=== PATIENT | female | born 2000 | race Caucasian/White ===

== ENCOUNTER 2024-09-28 12:50 | Outpatient (CLI) | payer BC, SELFPAY | END 2024-09-28 12:51 | disposition home or self-care (01) | PROVIDERS: PCP Family Medicine; Visit Provider Family Medicine | DX: R63.4 Abnormal weight loss (principal); R19.8 Other specified symptoms and signs involving the digestive system and abdomen; Z83.49 Family history of other endocrine, nutritional and metabolic diseases; Z82.61 Family history of arthritis | CPT/HCPCS: 80053; 84439; 84443; 86038; 86140; 86200; 86376; 86381; 86431 ==

== ENCOUNTER 2024-10-05 11:53 | Emergency (ER) | payer BC, SELFPAY ==
--- OUTSIDE RECORDS SUMMARY | 2024-09-26 08:30 | XMS_ITS | Encounter Summary ---
Author Organization [facility] Address [address] [place] [address] Care Team Providers Care Cushion Filler Name Role Phone Unavailable Primary Care Provider Unavailabl e Reason for Visit * Reason Comments Diarrhea Constipation Generalized Body Aches Abdominal Pain L upper & lower quad s. Aware that she may be referred on to ED as determined by the provider. Fatigue Visual Field Change See's intermittent f lickering lights when eyes are open Nausea Encounter Details Date Type Department Care Team (Late st Contact Info) Description 09/26/2024 8:30 AM CDT Office Visit Urgent Care in [place], [place] [address] [place] [address] Ginger Giraldo APRN, C.N.P., D.N.P. [address] [place] [address] Pain Left Upper Quadrant (Primary Dx); Lightheadedness Social History Tobacco Use Types Packs/Day Years Used Date Smoking Tobacco: Former Cigarettes Q uit: 08/16/2020 Smokeless Tobacco: Never Tobacco Cessation:Counseling Given: Not Answered Dental Answer Date Recorded Dental: Regular Dentist Unknown 09/27/19 25 Comments No Sex and Gender Information Value Date Recorded Sex Assigned at Not on file Legal Sex Female 8:21 AM CDT Gender Identity Not on file Sexual Orientation Not on file documented as of this encounter Last Filed Vital Signs Vital Sign Reading Time Taken Comments Blood Pressure 120/87 09/26/2024 9:32 AM CDT No dizziness. Slight headache only Pulse 107 09/26/2024 9:32 AM CDT Temperature 36.6 C (97.9 F) 09/26/2024 8:44 AM CDT Respiratory Rate 20 09/26/2024 8:44 AM CDT Oxygen Saturation 97% 09/26/2024 9:3 2 AM CDT Inhaled Oxygen Concentration - - Weight 51.7 kg (113 lb 15.7 oz) 09/26/2024 8:44 AM CDT Height - - Body Mass Index - - documented in this encounter Progress Notes * Ginger Giraldo APRN, C.N.P., D.N.P. - 09/26/2024 8:30 AM CDT Images from the original note were not included. SUBJECTIVE CHIEF COMPLAINT/REASON FOR VISIT Diarrhea, Constipation, Generalized Body Aches, Abdominal Pain (L upper & lower quads. Aware that she may be referred on to ED as determined by the provider.), Fatigue, Visual Field Change (See's intermittent flickering lights when eyes are open), and Nausea HISTORY OF PRESENT ILLNESS Julia Jeffrey is a 24 y.o. female presents to for evaluation of several complaints. The patienthas been experiencing abdominal pain for at least 1 month, but in the past 2 weeks pain has become more persistent. Abdominal pain can be intermittent; severity varies. Complains of pain in the LUQ described as sharp or burning pain. No fevers. Experiences both constipation and diarrhea. Denies anyepisodes of vomiting. Endorses fatigue with some joint pain. Drinks about 50-60 ounces of water during the day; usually has water throughout the night as well. In the past 3 days Savana has experienced lights flashing with position changes; laying to standing, laying to sitting, or getting out of the shower. Was evaluated by [facility] 08/27/24 for evaluation of sharp, stabbing pain in the abdomen. Tested for STDs including HIV. Mononucleosis & strep testing. Urinalysis at that time was unremarkable. Blood panel performed - was told WBC was slightly higher than normal. CT scan, pelvic ultrasound (ovarian cyst) . Plans to establish care with [facility] primary care provider, but states she has not been able to get into an appointment. States the provider at [facility] will not allowscheduling until old records can be sent. The following portions of the patient's history were reviewed and updated as appropriate: allergies, current medications, family history, medical history, social history, surgical history, and problem list. OBJECTIVE Vitals: 09/26/24 0844 09/26/24 0929 09/26/24 0930 09/26/24 0932 BP: 115/73 119/77 128/85 120/87 BP Location: Right arm Patient Position: Lying Standing Standing Cuff Size: Small Pulse: 84 81 (!) 115 107 Resp: 20 Temp: 36.6 ??C SpO2: 96% 97% Weight: 51.7 kg There is no height or weight on file to calculate BMI. PHYSICAL EXAMINATION Constitutional: Nursing note and vitals reviewed. HENT: Head: Clear drainage in posterior pharynx - mildly erythematous without exudates. Cardiovascular: Normal rate. Pulmonary/Chest: Effort normal. Abdominal: Soft. Normal appearance. Bowel sounds are decreased. There is abdominal tenderness in the epigastric area and left upper quadrant. Neurological: Alert and oriented to person, place, and time. Skin: Skin is warm, dry and normal color. Psychiatric: She has a normal mood and affect. Behavior is normal. Judgment and thought content normal. ASSESSMENT/PLAN #1 Pain Left Upper Quadrant #2 Lightheadedness Other orders - CBC with Differential, Blood - Basic Metabolic Panel Discussed consideration of an abdominal xray to rule out stool burden; patient declines stating they are worried about payment. Was able to convince patient to repeat basic labs; WBC remains slightlyelevated with a left shift. Based on information provided by the patient in HPI, the WBC has remained stable; would not initiate any antibiotics. Slight elevation could be reactive to pain. Pulse increased greater than 20 BPM when transitioning from a supine position to standing. Off-balanced sensation improved within a few seconds. I suspect fluid intake is not enough to support intermittent diarrhea. Differentials should include, but should not be limited to gastritis, silent GERD, hypovolemia due to low fluid intake with increased fluid output (diarrhea) among others. It is extremely important to follow-up with a primary care provider to determine next steps. Today,Savana will begin a trial of Protonix for suspected gastritis. Risks versus benefits of medications were discussed in addition to the side effects of the medication. She states understanding of the medication and plan. Patient made aware of emergent signs and symptoms and when to seek additional care. Patient encouraged to return to urgent care or their primary care provider if any health questions or concerns persist, worsen, or develop. documented in this encounter Plan of Treatment Not on file documented as of this encounter Procedures Procedure Name Priority Date/Time Associated Diagnosis Comments CBC WITH DIFFERENTIAL, B STAT 09/26/2024 9:19 AM CDT Pain Left Upper Quadrant Lightheadedness BASIC METABOLIC PANEL, S/P STAT 09/26/2024 9:19 AM CDT Pain Left Upper Quadrant Lightheadedness documented in this encounter Results * Basic Metabolic Panel (09/26/2024 9:19 AM CDT) Potassium, P 3.6 3.6 - 5.2 mmol/L 09/26/2024 9:42 AM CDT ERDG Sodium, P 140 135 - 145 mmol/L 09/26/2024 9:42 AM CDT ERDG Chloride, P 105 98 - 107 mmol/L 09/26/2024 9:42 AM CDT ERDG Bicarbonate, P 23 22 - 29 mmol/L 09/26/2024 9:42 AM CDT ERDG Anion Gap, P 12 7 - 15 09/26/2024 9:42 AM CDT ERDG BUN (Blood Urea Nitrogen), P 10 6 - 21 mg/dL 09/26/2024 9:42 AM CDT ERDG Creatinine 0.79 0.59 - 1.04 mg/dL 09/26/2024 9:42 AM CDT ERDG Estimated GFR (eGFR) >90 >=60 mL/min/BSA 09/26/2024 9:42 AM CDT ERDG Comment: Estimated GFR calculated using the 2020 CKD_EPI creatinine equation. Calcium, Total, P 9.9 8.6 - 10.0 mg/dL 09/26/2024 9:42 AM CDT ERDG Glucose, P 98 70 - 140 mg/dL 09/26/2024 9:42 AM CDT ERDG Blood (Blood, Venous) 09/26/2024 9:19 AM CDT 09/26/2024 9:21 AM CDT us Ginger Giraldo APRN, C.N.P., D.N.P. LAB JOSUE Sidhu ADD-ON Final Result [facility] [address] [place] [address], [facility] ERDG [facility] in [facility] [address] [place] [address] * (ABNORMAL) CBC with Differential, Blood (09/26/2024 9:19 AM CDT) [facility] Hemoglobin 13.0 11.6 - 15.0 g/dL 09/26/2024 9:32 AM CDT ERDG Hematocrit 36.9 35.5 - 44.9 % 09/26/2024 9:32 AM CDT ERDG Erythrocytes 4.24 3.92 - 5.13 x10(12)/L 09/26/2024 9:32 AM CDT ERDG MCV 87.0 78.2 - 97.9 fL 09/26/2024 9:32 AM CDT ERDG RBC Distrib Width 12.2 12.2 - 16.1 % 09/26/2024 9:32 AM CDT ERDG Platelet Count 275 157 - 371 x10(9)/L 09/26/2024 9:32 AM CDT ERDG Leukocytes 10.3(H) 3.4 - 9.6 x10(9)/L 09/26/2024 9:32 AM CDT ERDG Neutrophils 8.50(H) 1.56 - 6.45 x10(9)/L 09/26/2024 9:32 AM CDT ERDG Lymphocytes 1.40 0.95 - 3.07 x10(9)/L 09/26/2024 9:32 AM CDT ERDG Monocytes 0.40 0.26 - 0.81 x10(9)/L 09/26/2024 9:32 AM CDT ERDG Eosinophils <0.04 0.03 - 0.48 x10(9)/L 09/26/2024 9:32 AM CDT ERDG Basophils <0.04 0.01 - 0.08 x10(9)/L 09/26/2024 9:32 AM CDT ERDG Blood (Blood, Venous) 09/26/2024 9:19 AM CDT 09/26/2024 9:21 AM CDT us Ginger Giraldo APRN, C.N.P., D.N.P. LAB BLOO D ADD-ON Final Result [facility] [address] [place] [address], [facility] ERDG [facility] in [place] [address] [place] [id number] documented in this encounter Visit Diagnoses Diagnosis Pain Left Upper Quadrant- Primary Lightheadedness documented in this encounter
--- OUTSIDE RECORDS SUMMARY | 2024-10-04 07:42 | XMS_ITS | Continuity of Care Document ---
Author Organization [facility] Address [address] [address] [place] [address] Phone Care Team Providers Care Archivist Political History Name Role Phone No Information Unavailable Unavailable Advance Directives Directive Yes / No Effective Date File Name No Information Encounters Encounter Description Practice Location Reason(s) For Visit Diagnoses Date Provider Providers Copied on Encounter [facility], [address] [address], [place], [place], [id number], tel:[phone] No Information No Information Referring Provider: Katrin Lagunas MD E, [address], [place], [address]. tel:[phone] Family History Family Member Type Diagnosis Age At Onset No Information Payers Payer name Insurance type Covered republican ID Authoriza tion(s) No Information Social History Type Description Quantity Date Captured Comments Sex Female Smoking Status No Information Chief Complaint And Reason For Visit No Information Reason For Referral Reason For Referral No Information Plan Of Treatment Date Type Action Status Appointment Julia Jeffrey BOOKED History Of Present Illness Encounter Date Complaint History Of Prese nt Illness No Information Functional Status Date Functional Assessmen t No Information Instructions Date Instruction Additional Infor mation No Information Assessments Type Assessment Date No Information Patient Care Teams Name Effective Dates (start - stop) Status Members No Information
--- OUTSIDE RECORDS SUMMARY | 2024-10-04 07:42 | XMS_ITS | Continuity of Care Document ---
Author Organization [facility] Address [address] [address] [place] [address] Phone Care Team Providers Care Application Packager Name Role Phone No Information Unavailable Unavailable Advance Directives Directive Yes / No Effective Date File Name No Information Encounters Encounter Description Practice Location Reason(s) For Visit Diagnoses Date Provider Providers Copied on Encounter [facility], [address] [address], [place], [place], [id number], tel:[phone] No Information No Information Referring Provider: Katrin Lagunas MD [address], [address], [place], [address]. tel:[phone] Family History Family Member Type Diagnosis Age At Onset No Information Payers Payer name Insurance type Covered green party ID Authoriza tion(s) No Information Social History [...]
--- OUTSIDE RECORDS SUMMARY | 2024-10-05 11:55 | XMS_ITS | Clinical Summary ---
Author Organization [facility] Address [address] [place] [address] Care Team Providers Care Tilt Tray Driver Name Role Phone Unavailable Primary Care Provider Unavailabl e Source Comments Patient records contain information from all sites at [facility]. For routine questions regarding patient records, call [phone] during business hours, M-F 8:00 AM - 5:00 PM Central Time. Record requests for emergency care only can be directed to [phone] at any time.[facility] Allergies No known active allergies Medications OLANZapine (ZyPREXA) 5 mg tablet Take 5 mg by mouth at bedtime as needed (Sleep). Active polyethylene glycol (Miralax) 17 gram/dose oral powder Take 17 g by mouth daily as needed for constipation. Dissolve each 17 g dose in 240 mL (8 ounces) of beverage. Active cholecalciferol , vitamin D3, (cholecalcifero l) 25 mcg (1,000 Unit) tablet Take 25 mcg by mouth daily. Active pantoprazole (Protonix) 20 mg EC tablet Take 1 tablet (20 mg total) by mouth daily. 30 tablet 09/26/2024 Active Encounters Date Type Department Care Team Description 09/26/2024 8:30 AM CDT Office Visit Urgent Care in [place], [place] [address] [place] [address] Ginger Giraldo APRN, C.N.P., D.N.P. Pain Left Upper Quadrant (Primary Dx); Lightheadedness from Last 3 Months Social History Tobacco Use Types Packs/Day Years [...] on file Sexual Orientation Not on file Last Filed Vital Signs Vital Sign Reading [...] - - Body Mass Index - - Plan of Treatment Health Maintenance Due Date Last Done Comments Cervical/Vaginal Cancer Screening 2002 Chlamydia and Gonorrhea Screening 2002 HIV Screening 2002 Hepatitis C Screening 2002 Tobacco Cessation counseling 2002 HPV Vaccines (1 - 3-dose series) 2017 DTaP,Tdap,and Td Vaccines (1 - Tdap) 2021 Hepatitis B Vaccines (1 of 3 - 19+ 3-dose series) 2021 COVID-19 Vaccine ( - 2023-2 5 season) 2023 Influenza Vaccine (#1) 2024 Depression Screening (Annual PHQ-2) 04/18/2024 Glucose Test for Med Monitoring 09/26/2025 IPV Vaccines Aged Out No longer eligi ble based on patient's age to complete this topic Meningococcal Vaccine Aged Out No jennifer neal eligible based on patient's age to complete this topic Pneumococcal vaccine (0-49 years) Aged Out No longer eligible based on patient's age to complete this topic Procedures Procedure Name Priority Date/Time Associated Diagnosis Comments BASIC METABOLIC PANEL, S/P STAT 09/26/2024 9:19 AM CDT Pain Left Upper Quadrant Lightheadedness CBC WITH DIFFERENTIAL, B STAT 09/26/2024 9:19 AM CDT Pain Left Upper Quadrant Lightheadedness from Last 3 Months Results * (ABNORMAL) CBC with Differential, Blood (09/26/2024 9:19 AM CDT) Hemoglobin 13.0 11.6 - 15.0 g/dL 09/26/2024 [...] D.N.P. LAB BLOO D ADD-ON Final Result [facility] [address] [place] [address], [facility] ERDG [facility] in [facility] [address] [place] [address] * Basic Metabolic Panel (09/26/2024 9:19 AM CDT) Pathologist [facility] Potassium, P 3.6 3.6 - 5.2 mmol/L [...] AM CDT 09/26/2024 9:21 AM CDT us Ophelia Jorgensen APRN.N.P., D.N.P. LAB BLOO D ADD-ON Final Result [facility] [address] [place] [address], [facility] in [facility] [address] [place] [address] from Last 3 Months Insurance [facility]
--- OUTSIDE RECORDS SUMMARY | 2024-10-05 11:55 | XMS_ITS | Clinical Summary ---
Author Organization [facility] Address [address] [place] [id number] Care Team Providers Care Medical Orderly Name Role Phone Pcp, No Primary Care Provider Unavailabl e Allergies No known active allergies Medications OLANzapine 5 mg tablet Take 5 mg by mouth once daily if needed. Active pantoprazole 20 mg tablet Take 20 mg by mouth once daily before a meal. Active MULTIVITAMIN TAB take one tab daily 0 7 09/28/19 25 Discontinu ed(*Patien t states no longer taking) AMOXICILLIN 400 MG/5 ML ORAL SUSPIndications: Acute pharyngitis 5 ml po bid x 10 days qs 0 7 09/28/19 25 Discontinu ed(*Patien t states no longer taking) Encounters Date Type Department Care Team Description 09/27/2024 11:34 AM CDT - 09/27/2024 2:31 PM CDT Emergency [facility] [address] [place] [address] Chuy Randolph PA Left facial numbness (Primary Dx); Generalized body aches; Chronic abdominal pain; Frequent headaches Discharge Disposition: Home Self Care 09/27/2024 Travel from Last 3 Months Social History Tobacco Use Types Packs/Day Years Used Date Smoking Tobacco: Never Smokeless Tobacco: Never Tobacco Cessation:Counseling Given: Not Answered Alcohol Use Standard Drinks/Week Comments Yes 0 (1 standard drink = 0.6 oz pur e alcohol) socially Interpersonal Safety Answer Date Record ed Are you being hit, kicked, p ushed or yelled at (see row info)? No 09/27/2024 Interpersonal Safety Abuse 12 - 18 Not on file 09/27/2024 Interpersonal Safety Ambulatory Vulnerability No t on file 09/27/2024 Comments No Sex and Gender Information Value Date Recorded Sex Assigned at Female 09/27/2024 2:11 PM CDT Legal Sex Female 7:22 AM [employer] Gender Identity Other 09/27/2024 2:11 PM CDT Sexual Orientation Something else 09/27/2024 2: 11 PM CDT Obstetrics History Last Filed Vital Signs Vital Sign Reading Time Taken Comments Blood Pressure 114/84 09/27/2024 1:36 PM CDT Pulse 84 09/27/2024 1:36 PM CDT Temperature 36.9 C (98.5 F) 09/27/2024 12:41 PM CDT Respiratory Rate 14 09/27/2024 12:41 PM CDT Oxygen Saturation 100% 09/27/2024 1:36 PM CDT Inhaled Oxygen Concentration - - Weight 51.4 kg (113 lb 6.4 oz) 09/27/2024 11:24 AM CDT Height 158.8 cm (5' 2.5) 09/27/2024 11:24 AM CD T Body Mass Index 20.41 09/27/2024 11:24 AM CDT Plan of Treatment Health Maintenance Due Date Last Done Comments Tdap 2013 Depression screening for age 12+ 2014 HIV for age 15-65 2017 HPV series for age 9-26 (1 - 3-dose series) 2017 HPV series for age 9-26 (1 - 3-dose series) 2017 BMI (ht and wt on same day) for age 18+ 2020 Hepatitis C screening for ag e 18-79 2020 Hepatitis B series for 19+ ( 1 of 3 - 19+ 3-dose series) 2021 Tetanus booster 2022 Pap test for age 21-65 08/25/2023 COVID-19 vaccine series ( - season) 2023 Influenza Vaccine (Season Ended) 2024 Pneumococcal series for age 6-49 Aged Out No longer eligible based on patient's age to complete this topic Procedures Procedure Name Priority Date/Time Associated Diagnosis Comments CT ANGIO HEAD AND NECK CAROTID STAT 09/27/2024 1:18 PM CDT URINE STAT 09/27/2024 12:59 PM CDT C-REACTIVE PROTEIN STAT 09/27/2024 12 :48 PM CDT LYME SCREEN W/REFLEX STAT 09/27/2024 12:48 PM CDT CBC WITH AUTO DIFFERENTIAL STAT 09/27/2024 12:48 PM CDT LIPASE STAT 09/27/2024 12:48 PM CDT COMP METABOLIC PANEL STAT 09/27/2024 12:48 PM CDT CBC WITH AUTO DIFFERENTIAL STAT 09/27/2024 12:48 PM CDT from Last 3 Months Results * CTA HEAD AND NECK CAROTID (09/27/2024 1:18 PM CDT) Anatomical Region Laterality Modality BRAIN, NECK Computed Tomogra phy 09/27/2024 1:54 PM CDT Addenda Addendum by Fahad Chavez MD on 09/28/2024 7:27 AM CDT For Patients: As a result of the Cures Act, medical imaging exams and procedure reports are released immediately into your electronic medical record. You may view this report before your referring provider. If you have questions, please contact your health care provider. INDICATION: Acute stroke. TECHNIQUE: CTA neck with contrast bolus tracking, 3D angiographic rendering using maximum intensity projection (MIP) and images permanently archived. FINDINGS: There is no significant carotid artery stenosis or dissection. There is no significant vertebral artery stenosis or dissection. The soft tissues of the neck are within normal limits. The cervical spine is in normal alignment. IMPRESSION: Unremarkable neck CTA. No significant carotid or vertebral artery stenosis or dissection. Please note that all CT scans at this facility use dose modulation, iterative reconstruction, and/or weight-based dosing when appropriate to reduce radiation dose to as low as reasonably achievable. Dictated by Fahad Chavez MD @ 09/28/2024 7:27:08 AM (Electronically Signed) Addendum by Fahad Chavez MD on 09/28/2024 7:26 AM CDT For Patients: As a result of the Cures Act, medical imaging exams and procedure reports are released immediately into your electronic medical record. You may view this report before your referring provider. If you have questions, please contact your health care provider. INDICATION: Acute stroke. TECHNIQUE: CTA head with contrast bolus tracking, 3D angiographic rendering using maximum intensity projection (MIP) and images permanently archived. FINDINGS: There is normal opacification of the intracranial vasculature. There is no large vessel occlusion. No aneurysm is identified. IMPRESSION: No acute intracranial abnormality at CTA. Please note that all CT scans at this facility use dose modulation, iterative reconstruction, and/or weight-based dosing when appropriate to reduce radiation dose to as low as reasonably achievable. Dictated by Fahad Chavez MD @ 09/28/2024 7:26:00 AM (Electronically Signed) Narrative 09/27/2024 1:54 PM CDT For Patients: As a result of the Cures Act, medical imaging exams and procedure reports are released immediately into your electronic medical record. You may view this report before your referring provider. If you have questions, please contact your health care provider. Indication: Headache, left facial numbness. Technique: CT of the head without contrast. Coronal and sagittal reformats. Bone and soft tissue windows. Comparison: No prior studies available for comparison at this institution. Findings: No acute intracranial hemorrhage or extra-axial collection. No evidence of acute cortical infarction. No mass effect or midline shift. Normal cerebral volume. The ventricles are normal in size, shape and contour. There is normal walker and white matter differentiation. The orbital contents are normal. No calvarial fractures. No lytic or sclerotic osseous lesions within the calvarium or skull base. Scalp and other imaged soft tissue structures are normal. Mastoid air cells are clear. Paranasal sinuses are well aerated. Rightward deviation of the nasal septum with septal spur. Impression: No acute intracranial abnormality. Please note that all CT scans at this facility use dose modulation, iterative reconstruction, and/or weight-based dosing when appropriate to reduce radiation dose to as low as reasonably achievable. Dictated by Aren Guevara MD @ 09/27/2024 1:54:18 PM (Electronically Signed) Procedure Note Aren Guevara MD / Fahad Chavez MD - 09/27/2024 For Patients: As a result of the Century Cures Act, medical imagingexams and procedure reports are released immediately into your electronicmedical record. You may view this report before your referring provider.If you have questions, please contact your health care provider. Indication: Headache, left facial numbness. Technique: CT of the head without contrast. Coronal and sagittal reformats. Bone andsoft tissue windows. Comparison: No prior studies available for comparison at this institution. Findings: No acute intracranial hemorrhage or extra-axial collection. No evidence ofacute cortical infarction. No mass effect or midline shift. Normalcerebral volume. The ventricles are normal in size, shape and contour.There is normal walker and white matter differentiation. The orbital contents are normal. No calvarial fractures. No lytic orsclerotic osseous lesions within the calvarium or skull base. Scalp andother imaged soft tissue structures are normal. Mastoid air cells areclear. Paranasal sinuses are well aerated. Rightward deviation of thenasal septum with septal spur. Impression: No acute intracranial abnormality. Please note that all CT scans at this facility use dose modulation,iterative reconstruction, and/or weight-based dosing when appropriate toreduce radiation dose to as low as reasonably achievable. Dictated by Aren Guevara MD @ 09/27/2024 1:54:18 PM (Electronically Signed) us Chuy HUNTER CT Edited Result - Final * URINE (09/27/2024 12:59 PM CDT) ,URIN E Negative Negative 09/27/2024 1:07 PM CDT [facility] Urine URINE SPECIMEN / Unknown Non-Blood / Unknown 09/27/2024 12:59 PM CDT 09/27/2024 1:01 PM CDT us Chuy HUNTER URINE Final Result [facility] [address] [place] [address], [place] [phone] * (ABNORMAL) CBC WITH AUTO DIFFERENTIAL (09/27/2024 12:48 PM [facility]) [facility] WHITE BLOOD COUNT 8.0 4.5 - 11.0 thou/cu mm 09/27/2024 1:08 PM [facility] RED BLOOD COUNT 4.57 3.90 - 5.20 mil/cu mm 09/27/2024 1:08 [facility] HEMOGLOBIN 13.7 11.9 - 15.6 g/dL 09/27/2024 1:08 [facility] HEMATOCRIT 39.6 33.0 - 51.0 % 09/27/2024 1:08 [facility] MCV 87 80 - 100 fL 09/27/2024 1:08 [facility] MCH 30.0 26.0 - 34.0 pg 09/27/2024 1:08 [facility] MCHC 34.6 32.0 - 36.0 g/dL 09/27/2024 1:08 [facility] RDW 12.2 11.5 - 15.5 % 09/27/2024 1:08 [facility] PLATELET COUNT 278 140 - 440 thou/cu mm 09/27/2024 1:08 [facility] MPV 10.7 6.5 - 11.0 fL 09/27/2024 1:08 [facility] % NEUT 74.6(H) 42.0 - 72.0 % 09/27/2024 1:08 [facility] % LYMPH 19.5(L) 20.0 - 44.0 % 09/27/2024 1:08 [facility] % MONO 5.6 <=12.0 % 09/27/2024 1:08 [facility] % EOS 0.0 <=8.0 % 09/27/2024 1:08 [facility] % BASO 0.2 <=3.0 % 09/27/2024 1:08 PM [facility] ABSOLUTE NEUTROPHILS 6.0 1.7 - 7.0 thou/cu mm 09/27/2024 1:08 PM [facility] ABSOLUTE LYMPHOCYTES 1.6 0.9 - 2.9 thou/cu mm 09/27/2024 1:08 PM [facility] ABSOLUTE MONOCYTES 0.5 <=0.9 thou/cu mm 09/27/2024 1:08 PM [facility] ABSOLUTE EOSINOPHILS 0.0 <=0.5 thou/cu mm 09/27/2024 1:08 PM [facility] ABSOLUTE BASOPHILS 0.0 <=0.3 thou/cu mm 09/27/2024 1:08 PM [facility] Blood BLOOD SPECIMEN / Unknown IV Start / Unknown 09/27/2024 12:48 PM CDT 09/27/2024 12:52 PM CDT us Chuy HUNTER HEMATOLOGY Final Result Performing Organization Address City/[facility]/ZIP Co de Phone Number [facility] [address] [place] [address], * LYME SCREEN W/REFLEX (09/27/2024 12:48 PM CDT) [facility] LYME SCREEN W/REFLEX Negative Negative 09/28/2024 8:59 AM CDT [facility] TR[facility]OR[facility] Comment: No laboratory evidence of infection with B. burgdorferi (Lyme disease). Negative results may occur in patients recently infected (less than or equal to 14 days) with B. burgdorferi. If recent infection is suspected, repeat testing on a new sample collected in 7-14 days is recommended. Blood BLOOD SPECIMEN / Unknown IV Start / Unknown 09/27/2024 12:48 PM CDT 09/27/2024 1:22 PM CDT us Chuy HUNTER SEND OUTS Final Result [facility] [address] [place] [address], [place] * C-REACTIVE PROTEIN (09/27/2024 12:48 PM CDT) C-REACTIVE PROTEIN <0.50 <=1.00 mg/dL 09/27/2024 1:35 PM [facility] Blood BLOOD SPECIMEN / Unknown IV Start / Unknown 09/27/2024 12:48 PM CDT 09/27/2024 1:22 PM CDT Chuy HUNTER CHEMISTRY Final Result [facility] [address] [place] [address], [place] [phone] * LIPASE (09/27/2024 12:48 PM CDT) Pathologist [facility] [place] LIPASE TIKA 51 23 - 300 IU/L 09/27/2024 1:08 PM [facility] Blood BLOOD SPECIMEN / Unknown IV Start / Unknown 09/27/2024 12:48 PM CDT 09/27/2024 12:52 PM CDT Chuy HUNTER CHEMISTRY Final Result [facility] [address] [place] [address], [place] [phone] * (ABNORMAL) COMP METABOLIC PANEL (09/27/2024 12:48 PM CDT) Pathologist [facility] [place] SODIUM 138 137 - 145 mmol/L 09/27/2024 1:08 PM [facility] POTASSIUM 4.1 3.5 - 5.1 mmol/L 09/27/2024 1:08 PM [facility] CHLORIDE 107 98 - 107 mmol/L 09/27/2024 1:08 PM [facility] CO2,TOTAL 24 22 - 30 mmol/L 09/27/2024 1:08 PM [facility] GLUCOSE 93 >70 - 100 mg/dL 09/27/2024 1:08 PM [facility] CALCIUM 9.5 8.4 - 10.2 mg/dL 09/27/2024 1:08 PM [facility] BUN 9 7 - 17 mg/dL 09/27/2024 1:08 PM [facility] CREATININE 0.69 0.52 - 1.04 mg/dL 09/27/2024 1:08 PM [facility] eGFR >90 >90 mL/min/1.7 3m2 09/27/2024 1:08 PM [facility] Comment:As of 2021, eG FR is calculated by the CKD-EPI creatinine equation without race adjustment. eGFR can be influenced by muscle mass, exercise, and diet. The reported eGFR is an estimation only and is only applicable if the renal function is stable. PROTEIN,TOTAL 7.7 6.3 - 8.2 g/dL 09/27/2024 1:08 PM [facility] BILIRUBIN,TOTAL 2.0(H) 0.2 - 1.3 mg/dL 09/27/2024 1:08 PM [facility] ALK PHOSPHATASE TIKA 54 38 - 126 IU/L 09/27/2024 1:08 PM [facility] ALT (SGPT) TIKA 15 <35 IU/L 09/27/2024 1:08 PM [facility] AST (SGOT) TIKA 18 14 - 36 IU/L 09/27/2024 1:08 PM [facility] ALBUMIN 4.6 3.6 - 5.0 g/dL 09/27/2024 1:08 PM [facility] GLOBULIN 3.1 2.1 - 4.1 g/dL 09/27/2024 1:08 PM [facility] A/G RATIO 1.5 0.8 - 2.0 09/27/2024 1:08 PM [facility] ANION GAP 7 5 - 18 09/27/2024 1:08 PM CDT [facility] BUN/CREAT RATIO 13 10 - 20 1:08 PM CDT [facility] Blood BLOOD SPECIMEN / Unknown IV Start / Unknown 09/27/2024 12:48 PM CDT 09/27/2024 12:52 PM CDT Chuy HUNTER CHEMISTRY Final Result [facility] [address] [place] [address], [place] [phone] from Last 3 Months Insurance [facility] [id number] [place] [address] [facility] Care Teams Medical Orderly Relationship Specialty Start Date End Date Pcp, No . PCP - General 05/19/16
[2024-10-05 12:04] VITALS: BP 113/79; PULSE 105; RESP 16; TEMP 37.2; O2SAT 99; BMI 20.6
--- NOTE | 2024-10-05 12:27 | ED_ITS ---
HPI - General Adult General Chief complaint: Unspecified Complaint, Adult Stated complaint: Unspecified pain, flashing sensation in eyes Time Seen by Provider: 10/05/24 11:55 Source: patient Mode of arrival: ambulatory Limitations: no limitations History of Present Illness HPI narrative: 24-year-old transgender male presenting today with multiple concerns. Patient complains of weight loss despite no changes in diet, easy bruising, headaches, insomnia, cough, abdominal discomfort that comes and goes and is located periumbilically, generally feeling unwell, flashes of light in her eyes at night but not during the day, pain from head to toe, pain worsen in the last couple weeks in hands and knees. Inability to complete her job by the end of the day because of pain. Patient has a primary care doctor and tells me that they are are currently undergoing a thorough workup including checking for rheumatoid arthritis, Lyme, thyroid disease and other autoimmune diseases. Patient states the for the most part all of the symptoms have been going on for many many months. He does tell me that she sees a therapist has been seeing 1 since he was 19. Related Data Home Medications ?Medication ?Instructions ?Recorded ?Confirmed olanzapine 5 mg tablet 2.5 mg PO .prn 06/09/2309/17 Allergies Allergy/AdvReac Type Severity Reaction Status Date / Time No Known Drug Allergies Allergy Verified 10/05/24 11:56 Review of Systems Status of ROS: Reports: 10 or more systems reviewed and unremarkable except as noted in History and below Narrative: A 10 point review of systems was grossly positive. PFSH PFSH Family History Other Thyroid disease Social History Narrative: identified as male gender - goes by Manjit Smoking Status: Never smoker Exam Narrative: Exam Narrative: Well-nourished well-developed patient in no acute distress. Alert and oriented. Answers questions appropriately. Mood and affect are appropriate. Patient speaks in full sentences without needing to catch their breath. HEENT: Normocephalic atraumatic. Pupils are equally round reactive to light. Extraocular muscles are intact. Conjunctivae are moist without any icterus noted. Moist mucous membranes. Posterior pharynx is normal. Neck is soft without any lymphadenopathy or thyromegaly. No masses are appreciated. TMs are clear bilaterally. Cardiovascular: Heart is regular rate and rhythm S1 and S2 are present without any murmurs. Lungs: Clear to auscultation bilaterally no wheezes rhonchi or rales are appreciated. Patient takes deep breaths without any discomfort. Abdomen: Soft and nontender nondistended with normal bowel sounds. No guarding or rebound. No masses or organomegaly appreciated. Extremities: Bilateral lower extremities are without edema. Normal DP and PT pulses. Skin: Well perfused without any obvious rashes. Patient has a bruise on the anterior bowie on the left and 1 of the anterior knee on the right, about the size of a dime. Const: Vital Signs, click to edit/add: Vital Signs - 24 hr 10/05/24 12:04 Temperature 98.9 F Pulse Rate [Pulse Oximeter] 105 H Respiratory Rate 16 Blood Pressure [Ri ght Upper Arm] 113/79 Pulse Oximetry 99 Oxygen Delivery Me thod Room Air Course Vital Signs Vital signs: Initial Vital Signs Temperature 98.9 F 10/05/24 12:04 Temperature Source Temporal Artery Scan 10/05/24 12:04 Pulse Rate 105 H 10/05/24 12:04 Respiratory Rate 16 10/05/24 12:04 Blood Pressure 113/79 10/05/24 12:04 Blood Pressure Mean 90 10/05/24 12:04 Blood Pressure Position Sitting 10/05/24 12:04 Pulse Oximetry 99 10/05/24 12:04 Oxygen Delivery Method Room Air 10/05/24 12:04 Vital Signs Temperature 98.9 F 10/05/24 12:04 Pulse Rate 105 H 10/05/24 12:04 Respiratory Rate 16 10/05/24 12:04 Blood Pressure 113/79 10/05/24 12:04 Pulse Oximetry 99 10/05/24 12:04 Oxygen Delivery Method Room Air 10/05/24 12:04 Temperature 98.9 F 10/05/24 12:04 Pulse Rate 105 H 10/05/24 12:04 Respiratory Rate 16 10/05/24 12:04 Blood Pressure 113/79 10/05/24 12:04 Pulse Oximetry 99 10/05/24 12:04 Oxygen Delivery Method Room Air 10/05/24 12:04 Medical Decision Making [facility] Narrative Medical decision making narrative: 24-year-old transgender male presenting with multiple concerns, all chronic in nature. We discussed that the best place to have continued workup of these symptoms would be in the clinic. I do not see any concern today that would require any workup or imaging done in the ER. Patient states that he understands everything that I am saying and is in agreement, he will follow up with his primary care provider. Discharge Plan Discharge Clinical Impression: Feeling unwell Patient Disposition: Home, Self-Care Condition: Stable Additional Instructions: CONTINUE FOLLOWING UP WITH YOUR PRIMARY CARE DOCTOR Prescriptions: No Action olanzapine 5 mg tablet 2.5 mg PO .prn Follow Up/Referrals: Katrin Lagunas MD [Primary Care Provider, Family Practice] Stand Alone Forms: Molecular Imaging Info Instructions
== END 2024-10-05 12:38 | disposition home or self-care (01) ==
LOC: ED 12:28
PROVIDERS: Emergency Provider Family Medicine; PCP Family Medicine
DX: R63.4 Abnormal weight loss (principal); R51.9 Headache, unspecified; G47.00 Insomnia, unspecified; R10.9 Unspecified abdominal pain; F64.0 Transsexualism
CPT/HCPCS: 99282; 99283

== ENCOUNTER 2024-10-24 17:22 | Outpatient (CLI) | payer BC, SELFPAY ==
--- NOTE | 2024-10-24 17:30 | CRLHL7_ITS ---
For Patients: As a result of the Century Cures Act, medical imaging exams and procedure reports are released immediately into your electronic medical record. You may view this report before your referring provider. If you have questions, please contact your health care provider. INDICATION: NAUSEA COMPARISON: none TECHNIQUE: Real time celis scale imaging and color Doppler analysis was performed of the right upper quadrant. FINDINGS: The patient`s liver is of normal size and has uniform echogenicity. There is a normal appearance of the hepatic IVC and proximal abdominal aorta. There is no evidence of ascites. The gallbladder is of normal size and there is no evidence of intraluminal stones or sludge. The gallbladder wall measures 2.7 mm in thickness. The common bile duct is of normal size and measures 3.8 mm in diameter at the level of the tamera hepatis. The pancreas appears normal. There is no evidence of a stone or hydronephrosis within the right kidney. The right kidney measures 10.0 cm in length. IMPRESSION: Normal right upper quadrant ultrasound. Dictated by Aren Ortiz MD @ 10/25/2024 8:20:28 AM (Electronically Signed)
== END 2024-10-24 17:23 | disposition home or self-care (01) ==
LOC: US 17:22
PROVIDERS: PCP Family Medicine; Visit Provider Family Medicine
DX: R11.0 Nausea (principal); R10.11 Right upper quadrant pain; R63.4 Abnormal weight loss; R19.8 Other specified symptoms and signs involving the digestive system and abdomen
CPT/HCPCS: 76705